=== PATIENT | male | born 1950 | race Caucasian/White ===

== ENCOUNTER 2017-10-27 08:33 | Emergency (ER) | payer SELFPAY ==
[2017-10-27 08:41] VITALS: PULSE 68; TEMP 97.8
--- NOTE | 2017-10-27 09:11 | C.PDOC ---
History Of Present Illness 67 yo male, presents with right wrist pain after he "Banged it " 3 weeks ago at work. no other injury or complaint Time Seen by Provider: 10/27/17 09:08 Chief Complaint (Nursing): Upper Extremity Problem/Injury Past Medical History Reviewed: Historical Data, Nursing Documentation, Vital Signs Vital Signs: Last Vital Signs Temp 97.8 F 10/27/17 08:37 Pulse 68 10/27/17 09:50 Resp 18 10/27/17 09:50 BP 139/78 10/27/17 09:50 Pulse Ox 100 10/27/17 17:36 Family History: States: Unknown Family Hx - Social History Hx Tobacco Use: No Hx Alcohol Use: Yes Hx Substance Use: No - Immunization History Hx Tetanus Toxoid Vaccination: No Hx Influenza Vaccination: No Hx Pneumococcal Vaccination: No Review Of Systems Musculoskeletal: Positive for: Arm Pain (right wrist pain) Physical Exam - Physical Exam Appears: Well, No Acute Distress Skin: Normal Color, Warm, Dry Eye(s): bilateral: Normal Inspection, PERRL, EOMI Nose: Normal Throat: Normal Neck: Normal Cardiovascular: Rhythm Regular Respiratory: Normal Breath Sounds Gastrointestinal/Abdominal: Normal Exam Back: Normal Inspection Extremity: Normal ROM, Tenderness (mild right wrist. ), No Deformity, No Swelling ED Course And Treatment O2 Sat by Pulse Oximetry: 100 Medical Decision Making Medical Decision Making: xr neg as read by me. adivse outpt f/u Disposition - Disposition Referrals: [facility] [Outside] [facility] [Outside] [facility] [Outside] Kinza Begum MD [Staff Provider] - Disposition: HOME/ ROUTINE Disposition Time: 09:32 Condition: STABLE Additional Instructions: follow up with specialist. return to er with worsening symptoms or concerns Prescriptions: Naproxen [EC-Naprosyn] 500 mg PO BID PRN #14 tablet.dr BRADEN Reason: Pain, Mild (1-3) Instructions: Wrist Injury (ED) Forms: [employer] (Urdu) - Clinical Impression Clinical Impression: Wrist injury
[2017-10-27 09:51] VITALS: BP 139/78; RESP 18
--- NOTE | 2017-10-27 16:25 | RAD ---
PROCEDURE: Right Wrist Radiographs. HISTORY: trauma COMPARISON: Comparison is made to the previous study dated 07/02/2013 FINDINGS: BONES: Normal. No fracture. JOINTS: Normal. No dislocation. SOFT TISSUES: Normal. OTHER FINDINGS: None. IMPRESSION: No radiographic evidence of acute fracture or dislocation.
[2017-10-27 17:36] VITALS: O2SAT 100
== END 2017-10-27 09:52 | disposition home or self-care (01) ==
LOC: C.ER 08:33
DX: S69.91XA Unspecified injury of right wrist, hand and finger(s), initial encounter (principal); W22.01XA Walked into wall, initial encounter; Y92.89 Other specified places as the place of occurrence of the external cause